=== PATIENT | female | born 1980 | race Caucasian/White ===

== ENCOUNTER 2019-05-06 21:31 | Emergency (ER) | payer MEDICAID ==
[~2019-05-06] VITALS: Ht 154.9 cm; Wt 76.2 kg
[2019-05-06 22:03] VITALS: BP 118/77
== END 2019-05-06 22:03 | disposition home or self-care (01) ==
LOC: ED 21:31
DX: O99.612 Diseases of the digestive system complicating pregnancy, second trimester (principal); K08.89 Other specified disorders of teeth and supporting structures; Z3A.21 21 weeks gestation of pregnancy